=== PATIENT | male | born 1935 | race Caucasian/White ===

== ENCOUNTER → 2018-04-03 09:25 | Outpatient (CLI) | payer MEDICARE, SELFPAY ==
[2018-04-03 10:38] LABS: Alanine Aminotransferase 29 IU/L (21-72); Albumin 4.6 g/dL (3.5-5.0); Albumin Globulin Ratio 1.4 (1.0-2.8); Alkaline Phosphatase 71 U/L (38-126); Aspartate Aminotransferase 21 IU/L (17-59); BUN Creatinine Ratio 22.2 (6-22); Bilirubin Total 0.8 mg/dL (0.2-1.3); Blood Urea Nitrogen 20 mg/dL (9-20); Calcium 9.4 mg/dL (8.4-10.2); Carbon Dioxide 29 mmol/L (22-32); Chloride 100 mmol/L (98-107); Cholesterol 158 mg/dL (140-199); Estimated Glomerular Filt Rate > 60.0 mL/min (>60); Globulin 3.4 g/dL (1.7-4.1); Glucose 97 mg/dL (80-110); HDL Cholesterol 36 mg/dL (40-60); HEMOLYSIS < 15 (0-50); LDL Cholesterol Calculated 83 mg/dL (<100); Potassium 4.3 mmol/L (3.4-5.1); Sodium 142 mmol/L (137-145); Triglycerides 195 mg/dL (35-150)
[2018-04-03 11:15] LABS: TSH w/ Reflex to FT4 1.09 uIU/mL (0.47-4.68)
== END ==
PROVIDERS: PCP Internal Medicine; Visit Provider Internal Medicine
DX: E03.9 Hypothyroidism, unspecified (principal); E78.5 Hyperlipidemia, unspecified
CPT/HCPCS: 36415; 80053; 80061; 84443

== ENCOUNTER → 2018-08-10 07:39 | Outpatient (CLI) | payer MEDICARE, SELFPAY ==
--- NOTE | 2018-08-10 | DI.MRI.S_ITS ---
PROCEDURE: MR LUMBAR SPINE WO CON INDICATIONS: Spinal stenosis, lumbar region without neurogenic TECHNIQUE: Noncontrast sagittal T1 spin echo and T2 fast echo, sagittal STIR, axial T1 and T2 fast spin echo through the lumbar spine. In cases with scoliosis, additional coronal T2 fast spin echo may be performed. COMPARISON: [facility], MR, L-SPINE WITHOUT CONTRAST, 07/08/2013, 16:48. FINDINGS: Image quality: Slightly motion degraded. Alignment and Curvature: Trace retrolisthesis of L1 on L2 and L2 on L3. Trace retrolisthesis of L4 on L5. Bone Marrow: Slight compression fractures of T12 and L1, with visualized low signal intensity fracture lines. There is associated mild marrow edema suggesting of subacute or acute age. No posterior displacement of the posterior vertebral body wall. Spinal Cord: Conus medullaris terminates at the T12-L1 level. Visualized cord demonstrates normal signal and size. Paraspinous Soft Tissues: No paravertebral masses. Small bilateral T2 hyperintense renal foci presumably small cysts although technically indeterminate. L1-L2: Bilateral facet arthropathy. No high-grade canal stenosis. Lateral recesses appear grossly patent. No foraminal stenoses. L2-L3: Broad-based posterior disc bulge and bilateral facet arthropathy. Posterior annular fissure. No high-grade canal stenoses. Minimal symmetric partial effacement of the left and right recess. No definite foraminal narrowing. L3-L4: Broad-based posterior disc bulge and bilateral facet arthropathy. No high-grade central canal stenosis. Partial effacement of the left and right lateral recesses, however this appears mildly asymmetric, right greater than left. No definite foraminal stenosis. L4-L5: Broad-based posterior disc bulge and bilateral facet arthropathy. There is minimal dorsal epidural lipomatosis. No high-grade central canal stenosis. There is partial effacement of the left and right lateral recesses, which appears mildly asymmetric, right greater than left. No definite foraminal narrowing identified. L5-S1: Broad-based posterior disc bulge without high-grade central canal stenosis. There is mild epidural lipomatosis. Bilateral facet arthropathy. Posterior annular fissure. Lateral recesses appear patent. Moderate left foraminal stenosis, and mild right foraminal narrowing. IMPRESSION: Subacute versus acute mild T12 and L1 compression fractures. Multilevel lumbar disc degeneration and facet arthropathy as above with no high-grade canal stenosis. No foraminal stenosis however there is asymmetric right greater than left subarticular narrowing at L3-L4 and L4-L5. Please correlate clinically. Moderate left L5-S1 foraminal stenosis. Dictated by: Aiden Plaza M.D. on 08/10/2018 at 9:21 Approved by: Aiden Plaza M.D. on 08/10/2018 at 9:37
== END ==
PROVIDERS: PCP Internal Medicine; Visit Provider Internal Medicine
DX: M48.061 Spinal stenosis, lumbar region without neurogenic claudication (principal); M48.07 Spinal stenosis, lumbosacral region; M51.36 Other intervertebral disc degeneration, lumbar region; M51.37 Other intervertebral disc degeneration, lumbosacral region; M47.816 Spondylosis without myelopathy or radiculopathy, lumbar region; M47.817 Spondylosis without myelopathy or radiculopathy, lumbosacral region; M48.55XA Collapsed vertebra, not elsewhere classified, thoracolumbar region, initial encounter for fracture
CPT/HCPCS: 72148

== ENCOUNTER 2019-01-05 07:36 | Emergency (ER) | payer MEDICARE, SELFPAY ==
[2019-01-05 07:49] VITALS: BP 136/82; PULSE 87; RESP 20; TEMP 36.8; O2SAT 98; BMI 23.1
--- NOTE | 2019-01-05 08:01 | ED.FALL ---
HPI - Fall General Chief Complaint: Fall Stated Complaint: FALL Time Seen by Provider: 01/05/19 07:52 Source: patient Mode of arrival: wheelchair Limitations: no limitations History of Present Illness HPI Narrative: Patient is an 83-year-old male who presents after a ground level fall. He states he and his were just getting over influenza. Overall feeling better. He got out of bed using his cane instead of his walker. He fell backwards hitting the wall and striking his head no loss of consciousness. He does have some back pain. He is not on any anti-platelet or anticoagulation medication. He initially had a headache but it is improving and almost gone. He has no nausea no vision changes no weakness MD complaint: fall Onset (ago): minute(s) Fall from: standing Fall witnessed: yes, by family Place fall occurred: home Loss of consciousness: none Prolonged down time: no Symptoms prior to fall: none Context: tripped/slipped Location of injury: head and back Related Data Home Medications Medication Instructions Recorded Confirmed atorvastatin [Lipitor] #0 09/19/17 finasteride #0 09/19/17 levothyroxine [Synthroid] #0 09/19/17 lisinopril [Zestril] #0 09/19/17 oxybutynin chloride #0 09/19/17 Previous Rx's Medication Instructions Recorded indomethacin 25 mg PO BID #60 cap 12/28/17 Allergies Allergy/AdvReac Type Severity Reaction Status Date / Time amitriptyline Allergy Verified 01/05/19 08:07 Review of Systems Review of Systems GENERAL: Denies chills, fatigue, malaise, fever, sweats, travel HEENT: Denies sinus pain, ear pain, sore throat, difficulty swallowing, neck pain RESPIRATORY: Denies dyspnea, cough, wheezing, hemoptysis, sputum. CARDIOVASCULAR: Denies chest pain, palpitations, orthopnea, edema GASTROINTESTINAL: Denies nausea, vomiting, abdominal pain, diarrhea, constipation, melena. : Denies dysuria, frequency, incontinence, hematuria, urinary retention, flank pain. MUSCULOSKELETAL: Denies weakness, joint pain, or bony pain SKIN: Laceration on scalp NEUROLOGIC: Denies weakness, dizziness, headache, numbness, change in speech, confusion PSYCHIATRIC: No concerning psychosocial issues. 12 point review of systems is negative except for those stated above and HPI Exam Initial Vital Signs Initial Vital Signs: Vital Signs Temperature 98.3 F 01/05/19 07:49 Pulse Rate 87 01/05/19 07:49 Respiratory Rate 20 01/05/19 07:49 Blood Pressure 136/82 01/05/19 07:49 Pulse Oximetry 98 01/05/19 07:49 GENERAL: Alert well-appearing elderly and in [no acute] distress. HEENT: Head laceration on top 3cm, no crepitations no depression NECK: Full flexion extension and rotation, nontender CARDIOVASCULAR: Regular rate and rhythm without murmurs, rubs or gallops. RESPIRATORY: Breath sounds equal bilaterally, no wheezes rales or rhonchi. ABDOMEN: Soft, nontender. Normoactive bowel sounds all 4 quadrants. No guarding or rebound. BACK: Tender mid thoracic spine no contusion no step-off : No CVA tenderness EXTREMITIES: Normal range of motion, no clubbing or edema. Neurovascularly intact NEUROLOGICAL: Alert and oriented x4.Normal gait and speech. Cranial nerves II through XII grossly intact. [Good [id number], good [id number], strength equal bilaterally, no dysarthria or aphasia, sensation in tact to soft touch bilaterally, no visual changes, no facial droop] SKIN: 4 cm laceration on scalp. [facility] Social History Smoking Status: Former smoker Social History Smoking Status: Former smoker Procedures Laceration Repair Laceration 1: Site: scalp Size (cm): 4 Description: linear Depth: simple, single layer Local Anesthetic: lidocaine 1% Amount of anesthesia used (mL): 4 Pre-repair: wound explored, irrigated extensively and deep structures intact Skin layer closed with: zane Number of sutures: 5 Course Orders Ordered: ED Orders 01/05/19 08:02 XR thoracic spine 3V Stat Vital Signs - 8 hr 01/05/19 07:49 01/05/19 09:29 Temperature 98.3 F Pulse Rate 87 82 Respiratory Rate 20 18 Blood Pressure 136/82 Blood Pressure [Left Arm] 112/72 Pulse Oximetry 98 99 MDM - Fall Imaging Data thoracic XR: Attestation: I personally reviewed and interpreted this imaging study as follows: My impression: no fractue. no abnormality Radiologist's impression: PROCEDURE: XR THORACIC SPINE 3V INDICATIONS: spine pain fall TECHNIQUE: 3 views of the thoracic spine were acquired. COMPARISON: [facility], MR, MR LUMBAR SPINE WO CON, 08/10/2018, 7:52. FINDINGS: Bones: Fractures of T12 and L1, which were previously subacute are now chronic. No acute fractures or dislocations. No suspicious bony lesions. 12 pairs of ribs are noted, and appear intact where visualized. Soft tissues: No paravertebral stripe thickening. IMPRESSION: Chronic T12 and L1 compression fractures. No acute compression fractures. Dictated by: Ayo Toro M.D. on 01/05/2019 at 9:27 MDM Narrative Medical decision making narrative: Patient's headache is improving he is not on antiplatelet or anticoagulation medication. He does have a laceration on the top of his head however at this time I do not believe him to need head CT or a neck CT. Has full range of motion of neck. Negative thoracic spinal x-ray. Discharge Plan Departure Patient Disposition: Home Clinical Impression: Laceration of scalp Qualifiers: Encounter type: initial encounter Qualified Code(s): S01.01XA - Laceration without foreign body of scalp, initial encounter Discharge Date/Time: 01/05/19 09:35 Interventions: ED Discharge Assessment Last Done: 01/05/19 09:35 Instructions: DI for Laceration Repair -- [place] Activity Restrictions/Additional Instructions: *You have been diagnosed with laceration of scalp *What to do: Have zane removed in 5-7 days either with her PCP, walk-in clinic or the ED. You may wash her hair, no swimming, no hair cuts. He may apply Neosporin twice daily to help with healing *Continue to take medications as directed Tylenol/acetaminophen 650 mg every 4-6 hours if needed for pain *Follow up with your primary care provider in 2-3 days *Return to ER if you should have worsening headache, persistent vomiting, redness, pus or any new, worsening or concerning symptoms Prescriptions: No Action levothyroxine [Synthroid] 125 MCG tablet Qty: 0 RF: 0 atorvastatin [Lipitor] 10 MG tablet Qty: 0 RF: 0 lisinopril [Zestril] 5 MG tablet Qty: 0 RF: 0 oxybutynin chloride 5 MG tablet Qty: 0 RF: 0 finasteride 5 MG tablet Qty: 0 RF: 0 indomethacin 25 MG capsule 25 mg PO BID Qty: 60 RF: 1 Referrals: Yonatan Jefferson MD [Primary Care Provider] -
[2019-01-05 09:29] VITALS: BP 112/72; PULSE 82; RESP 18; O2SAT 99
== END 2019-01-05 09:35 | disposition home or self-care (01) ==
PROVIDERS: Emergency Provider Emergency Medicine; PCP Internal Medicine
DX: S01.01XA Laceration without foreign body of scalp, initial encounter (principal); W19.XXXA Unspecified fall, initial encounter; M54.9 Dorsalgia, unspecified
CPT/HCPCS: 12002; 72072; 99283